=== PATIENT | female | born 1940 | race Caucasian/White ===

== ENCOUNTER 2019-11-04 06:58 | Day surgery (SDC) | payer MEDICARE, BC ==
[~2019-11-04] VITALS: Ht 149.9 cm; Wt 52.2 kg
[2019-11-04] VITALS (7 sets, daily range): BP systolic 132–144; BP diastolic 59–72
[~2019-11-04 06:58] MED LIST: ASPIR 8181 MG ORAL; B12 PO; CITRACAL + D E1 EACH PO; DITROPAN10 MG ORAL; LEVOTHYROXINE50 MCG ORAL; LIPITOR10 MG ORAL; LOSARTAN POTASS50 MG ORAL; MELATONIN5 M4 ORAL; NORCO 5-325 TA1 EAC1 ORAL; OMEPRAZOLE20 M2 ORAL; SPIRONOLACTONE1 EACH ORAL; SUPER B COMPLE150 MG PO; TIZANIDINE HCL4 MG ORAL
[2019-11-04] MEDS ORDERED: LR 1000ml 1,000 ML IVLG SCH ×2 (07:00→07:35)
[2019-11-04] MEDS ORDERED: XARELTO10 MG ORAL (07:42)
[2019-11-04] MEDS ORDERED: Atropine Inj 1mg/10ml Syr IV PRN (07:45)
[2019-11-04] MEDS ORDERED: Midazolam 2mg/2ml Inj IVP PRN (07:45)
[2019-11-04] MEDS ORDERED: fentaNYL 100 mcg/2 mL IV PRN (07:45)
[2019-11-04] MEDS ORDERED: DiphenhydrAMINE 50mg/ml Inj IVP PRN (07:45)
[2019-11-04] MEDS ORDERED: PROBIOTIC1 EAC2 PO (07:46)
[2019-11-04] MEDS ORDERED: ZANTAC150 MG ORAL (07:46)
[2019-11-04] MEDS ORDERED: GABAPENTIN100 MG ORAL (07:46)
[2019-11-04] MEDS ORDERED: HYDROCHLOROTH12.5 MG ORAL (07:46)
[2019-11-04] MEDS ORDERED: ONE A DAY PO (07:46)
[2019-11-04] MEDS ORDERED: HAIR, SKIN & N1 EACH PO (07:46)
[2019-11-04] MEDS ORDERED: METOPROLOL SUCC25 MG ORAL (07:46)
[2019-11-04] MEDS ORDERED: AMIODARONE HCL100 MG ORAL (07:46)
--- NOTE | 2019-11-04 07:56 | Anethesia Preoperative Eval ---
Anesthesia Pre-op PMH/ROS General Date of Evaluation: Nov 04, 2019 Time of Evaluation: 07:37 Anesthesiologist: tobi ASA Score: ASA 4 Mallampati Score Class I : Soft palate, uvula, fauces, pillars visible Class II: Soft palate, uvula, fauces visible Class III: Soft palate, base of uvula visible Class IV: Only hard plate visible Mallampati Classification: Class II Surgeon: alan Diagnosis: anemia Surgical Procedure: egd/colonoscopy Anesthesia History: none Social History: smoking - former smoker Family History: no anesthesia problems Allergies: Coded Allergies: No Known Allergies (Verified , 11/04/19) Medications: see eMAR Patient NPO?: Yes Past Medical History Cardiovascular: Reports: HTN, IA, valve dz, arrhythmia - hypercholesterolemia, other - pacemaker Neurologic/Psychiatric: Reports: CVA Endocrine: Reports: hypothyroidism HEENT: Reports: cataract (R), other - left eye blind Hematology/Immune: Reports: anemia Musculoskeletal/Integumentary: Reports: DDD, other PSxH Narrative: gastric bypass, catrarct extraction right eye, pacemaker placement Anesthesia Pre-op Phys. Exam Physician Exam Last Vital Signs Date Time Temp Pulse Resp B/P (MAP) Pulse Ox O2 Delivery O2 Flow Rate FiO2 11/04/19 07:26 97.7 60 19 135/62 100 Room Air Constitutional: NAD Neurologic: other - left eye blind Cardiovascular: RRR Respiratory: CTA Gastrointestinal: S/NT/ND Airway Exam Mallampati Score: Class II MO: limited Neck: decreased rom to lateral rotation TMD: 2fb ROM: limited Teeth: missing Anesthesia Pre-op A/P Risk Assessment & Plan Assessment: asa4 Plan: mac Status Change Before Surgery: No Pre-Antibiotics Drug: Aubree Esqueda MD Nov 04, 2019 07:56
[2019-11-04] MEDS ORDERED: Propofol 200mg/20ml IV ONE (08:00)
[2019-11-04] MEDS ORDERED: LR 1000ml ONE (08:00)
[2019-11-04] MEDS ORDERED: Lidocaine 1% MPF 10mg/ml 5ml ONE (08:00)
--- NOTE | 2019-11-04 08:35 | Short Stay Surgery H&P ---
History of Present Illness History of Present Illness Chief Complaint see H&P HPI Christi Hunt is a 79 year old female who was admitted on for Anemia Patient History Allergies: Coded Allergies: No Known Allergies (Verified , 11/04/19) Medication History Scheduled Amiodarone Hcl (Amiodarone Hcl), 200 MG ORAL DAILY, (Reported) Aspirin* (Aspir 81*), 81 MG ORAL HS, (Reported) Atorvastatin Calcium* (Lipitor*), 10 MG ORAL DAILY, (Reported) Gabapentin* (Gabapentin*), 100 MG ORAL DAILY, (Reported) Hydrochlorothiazide* (Hydrochlorothiazide*), 12.5 MG ORAL BID, (Reported) Levothyroxine Sodium* (Levothyroxine Sodium*), 50 MCG ORAL DAILY, (Reported) Losartan Potassium* (Losartan Potassium*), 50 MG ORAL DAILY, (Reported) Metoprolol Succinate* (Metoprolol Succinate*), 25 MG ORAL DAILY, (Reported) Multivitamin With Minerals (Hair, Skin & Nails), 1 EACH PO DAILY, (Reported) Oxybutynin Chloride (Oxybutynin Chloride), 2.5 MG ORAL BID, (Reported) Ranitidine Hcl* (Zantac*), 300 MG ORAL DAILY, (Reported) Rivaroxaban (Xarelto*), 15 MG ORAL DAILY, (Reported) Tizanidine Hcl* (Zanaflex*), 4 MG ORAL HS, (Reported) Vitamin B Complex & Vit C No.4 (Super B Complex), 150 MG PO DAILY, (Reported) [B12], 1,000 MG PO 3XW, (Reported) [One A Day], Unknown Dose PO DAILY, (Reported) Scheduled PRN Melatonin (Melatonin), 5 MG ORAL BEDTIME PRN for Insomnia, (Reported) Miscellaneous Medications Lactobacillus Acidophilus (Probiotic), 1 EACH PO, (Reported) Physical Exam Vital Signs Last Vital Signs Date Time Temp Pulse Resp B/P (MAP) Pulse Ox O2 Delivery O2 Flow Rate FiO2 11/04/19 07:26 97.7 60 19 135/62 100 Room Air Plan Attestation Are the patient's medical conditions optimized for surgery? Mitch Gauthier MD Nov 04, 2019 08:35
--- NOTE | 2019-11-04 08:35 | Pre-Procedure Note/Attestation ---
Pre-Procedure Note/Attestation Complete Prior to Procedure Planned Procedure: not applicable Procedure Narrative: esophagogastroduodenoscopy colon Indications for Procedure Pre-Operative Diagnosis: anemia Attestation I attest that I discussed the nature of the procedure; its benefits; risks and complications; and alternatives (and the risks and benefits of such alternatives ), prior to the procedure, with the patient (or the patient's legal brewery representative). I attest that, if there was a reasonable possibility of needing a blood transfusion, the patient (or the patient's legal brewery representative) was given the [facility] standardized written summary, pursuant to the [employer] Blood Safety Act ([place] Health and Safety Code # 1645, as amended). I attest that I re-evaluated the patient just prior to the surgery and that there has been no change in the patient's H&P, except as documented below: Mitch Gauthier MD Nov 04, 2019 08:35
--- NOTE | 2019-11-04 10:14 | Immediate Post-Op Evaluation ---
Immediate Post-Op Evalulation Immediate Post-Op Evalulation Procedure: egd/colonoscopy w/bx Date of Evaluation: Nov 04, 2019 Time of Evaluation: 09:44 IV Fluids: 550ml lr Blood Products: none Estimated Blood Loss: negligible Blood Pressure Systolic: 131 Blood Pressure Diastolic: 70 Pulse Rate: 59 Respiratory Rate: 18 O2 Sat by Pulse Oximetry: 100 Temperature (Fahrenheit): 97.0 Pain Score (1-10): 0 Nausea: No Vomiting: No Complications none Patient Status: awake, reacts, patent Hydration Status: adequate Drug: Aubree Esqueda MD Nov 04, 2019 10:14
--- NOTE | 2019-11-04 10:42 | 48 Hour Post Anesthesia Eval ---
Post Anesthesia Evaluation Procedure: egd/colonoscopy w/bx Date of Evaluation: Nov 04, 2019 Time of Evaluation: 09:46 Blood Pressure Systolic: 137 0: 70 Pulse Rate: 64 Respiratory Rate: 18 Temperature (Fahrenheit): 97.0 O2 Sat by Pulse Oximetry: 100 Airway: patent Nausea: No Vomiting: No Pain Intensity: 0 Hydration Status: adequate Cardiopulmonary Status: stable Mental Status/LOC: patient returned to baseline Post-Anesthesia Complications: none Follow-up care needed: N/A Aubree Mitchell MD Nov 04, 2019 10:42
--- NOTE | 2019-11-04 16:15 | Operative Note - Dictated ---
DATE OF OPERATION: 11/04/2019 GASTROENTEROLOGY PROCEDURE NOTE PROCEDURE: Upper gastrointestinal endoscopy with biopsy as well as colonoscopy with biopsy. SURGEON: Mitch Gauthier M.D. ANESTHESIA: Aubree Medina M.D. PRE-ENDOSCOPIC DIAGNOSIS: Anemia. POST-ENDOSCOPIC DIAGNOSES: 1. Status post Naomi-en-Y gastric bypass surgery as expected. 2. An 8 cm gastric pouch with a 1.5 to 2 cm gastrojejunal anastomosis. 3. A 1 to 2 cm single lower esophageal tongue, status post biopsy. 4. Normal terminal ileum to about 10 cm. 5. Mild sigmoid diverticulosis. 6. Diminutive polyp in the proximal ascending colon just above the cecum, status post biopsy, removal. 7. Mild internal hemorrhoids. DESCRIPTION OF PROCEDURE: The procedure, its risks, indications, alternatives, and complications were explained and informed consent was obtained. The patient was then sedated and a diagnostic upper endoscope was introduced into oropharynx and advanced to the duodenum. The endoscope was gradually withdrawn and mucosa examined carefully. Findings are as listed above. The rectal exam was then done and colonoscope was introduced into the rectum and advanced to the terminal ileum for about 10 cm. The colonoscope was then gradually withdrawn and mucosa examined carefully. A retroflexed view of the rectum could not be done due to inability to insufflate due to air leak from the anus. The colonoscope was removed after careful anterograde views of the rectum were obtained and the patient was sent to recovery in good condition. COMPLICATIONS: None. RECOMMENDATIONS: 1. Follow up biopsy results. 2. High-fiber diet. 3. Resume anticoagulation. 4. Outpatient followup. Mitch Gauthier M.D. DR: SEAN JOB#: [id number] CC: Chintan Orozco M.D.
== END 2019-11-04 10:40 | disposition home or self-care (01) ==
LOC: GAS 06:58
DX: D64.9 Anemia, unspecified (principal); Z98.84 Bariatric surgery status; K57.90 Diverticulosis of intestine, part unspecified, without perforation or abscess without bleeding; K63.5 Polyp of colon; K64.8 Other hemorrhoids; Z79.82 Long term (current) use of aspirin; Z79.899 Other long term (current) drug therapy; I25.2 Old myocardial infarction; E78.00 Pure hypercholesterolemia, unspecified; I10 Essential (primary) hypertension; Z95.0 Presence of cardiac pacemaker; E03.9 Hypothyroidism, unspecified; Z86.73 Personal history of transient ischemic attack (TIA), and cerebral infarction without residual deficits; Z87.891 Personal history of nicotine dependence; H54.62 Unqualified visual loss, left eye, normal vision right eye; D12.2 Benign neoplasm of ascending colon
CPT/HCPCS: 43239; 45380; J2704; J7120; 94003; 94150